=== PATIENT | female | born 1960 | race Caucasian/White ===

== ENCOUNTER 2020-09-13 16:21 | Emergency (ER) | payer OTHER ==
[~2020-09-13 16:21] MED LIST: LISINOPRIL5 MG PO; TAB-A-VITE1 EACH PO; VITAMIN B-1100 M1 PO; ZOFRAN 4 MG TAB4 MG PO; ZOFRAN ODT 4 MG4 MG SL
[2020-09-13 19:15] LABS: HEMOGLOBIN 14.4 gm/dl (12.3-15.3); RED BLOOD COUNT 3.99 M/UL (4.00-5.10); WHITE BLOOD COUNT 9.2 K/UL (4.5-11.0)
[2020-09-13 19:45] LABS: BUN/CREATININE RATIO 17 (0-10)
[2020-09-13] MEDS ORDERED: AMLODIPINE BES2.5 MG PO (21:13)
== END 2020-09-13 22:02 | disposition home or self-care (01) ==
LOC: ER1 16:21
PROVIDERS: Emergency Medicine
DX: I10 Essential (primary) hypertension (principal); R00.2 Palpitations; E87.1 Hypo-osmolality and hyponatremia; F17.200 Nicotine dependence, unspecified, uncomplicated
CPT/HCPCS: 71045; 80053; 80307; 81001; 82550; 82553; 83605; 83690; 83735; 83874; 83880; 84439; 84443; 84484; 85025; 85379; 99284; G0480; J7030